=== PATIENT | male | born 1970 | race Caucasian/White ===

== ENCOUNTER 2018-12-11 06:05 | Outpatient (CLI) | payer OTHER ==
[~2018-12-11] VITALS: Ht 177.8 cm; Wt 127.0 kg
[2018-12-11] MEDS ORDERED: FOSI40TA5 PO (10:53)
[2018-12-11] MEDS ORDERED: DIPH25TA31 PO (10:53)
[2018-12-11] MEDS ORDERED: HYDR12.5 PO (10:53)
[2018-12-11] MEDS ORDERED: HYDR-3812 PO (10:53)
[2018-12-11] MEDS ORDERED: ALPR2TAB6 PO (10:53)
== END 2018-12-11 11:30 | disposition home or self-care (01) ==
LOC: PREOP 06:05
PROVIDERS: ATTEND Surgery
DX: Z01.818 Encounter for other preprocedural examination (principal)

== ENCOUNTER 2018-12-18 06:03 | Day surgery (SDC) | payer BC, OTHER ==
[2018-12-18] VITALS (12 sets, daily range): BP systolic 99–128; BP diastolic 75–87
[~2018-12-18] VITALS: Ht 177.8 cm; Wt 127.0 kg
[~2018-12-18 06:03] MED LIST: ALPR2TAB6 PO; DIPH25TA31 PO; FOSI40TA5 PO; HYDR-3812 PO; HYDR12.5 PO
[2018-12-18] MEDS ORDERED: LACTATED RINGERS 1,000 ML IV PRN (06:19)
[2018-12-18] MEDS ORDERED: ceFAZolin 2 GM/50 ML NS 50 ML IV ONE (06:30)
[2018-12-18] MEDS ORDERED: BUP/EPI 0.5% 1:200,000 (MARCAINE) 10ML VIAL IJ ONE (07:14)
[2018-12-18] MEDS ORDERED: ONDANSETRON 4 MG/2 ML (SDV) Z0FRAN ONE (07:14)
[2018-12-18] MEDS ORDERED: DEXAMETHASONE 10 MG/ML (DECADRON) 1 ML VIAL ONE (07:14)
[2018-12-18] MEDS ORDERED: LIDOCAINE PF 2% 5 ML (XYLOCAINE) VIAL ONE (07:14)
[2018-12-18] MEDS ORDERED: SEVOFLURANE (ULTANE) 15 ML INHAL SOLN ONE (07:14)
[2018-12-18] MEDS ORDERED: proPOfol 200 MG/20 ML (DIPRIVAN) VIAL IV ONE (07:14)
[2018-12-18] MEDS ORDERED: fentaNYL INJECTION 100 MCG/2 ML AMP ONE (07:15)
[2018-12-18] MEDS ORDERED: MIDAZOLAM 2 MG/2 ML (VERSED) VIAL ONE (07:15)
[2018-12-18] MEDS ORDERED: VALA500T4 PO (07:20)
--- NOTE | 2018-12-18 07:48 | Progress Note-Pre Operative ---
Pre-Operative Progress Note H&P Reviewed The H&P was reviewed, patient examined and no changes noted. Date Seen by Provider: Dec 18, 2018 Time Seen by Provider: 07:30 Date H&P Reviewed: Dec 18, 2018 Time H&P Reviewed: 07:30 Pre-Operative Diagnosis: right ankle mass DRAGAN LOPEZ DO Dec 18, 2018 07:47
[2018-12-18] MEDS ORDERED: ACHD5005 PO (08:29)
--- NOTE | 2018-12-18 08:33 | Discharge Inst-Simple/Standard ---
Discharge Inst-Standard Discharge Medications New, Converted or Re-Newed RX: RX on Chart Patient Instructions/Follow Up Plan of Care/Instructions/FU: Yuliya 1 week. Yuliya nurse visit tomorrow for wound care to right ankle. Activity as Tolerated: Yes Discharge Diet: Regular Diet Other Inst to Patient Follow up Appt: Make appointment for 1 week Nurse visit tomorrow for wound care/check at Dr. Dwyer's office. Instructions: May shower in 24 hours, no tub bath or soaking keeping the wound clean and dry. No Smoking Change dressing daily and as needed. Skin/Wound Care: Keep area clean and dry. Irrigate with saline and pack wet to dry with kerlex and then secure with cristy bandage. Symptoms to Report: Appetite Changes, Extremity Discoloration, Numbness/Tingling, Swelling Increased, Bleeding Excessive, Eyesight Changes, Pain Increased, Urine Color Change, Constipation(Persistent), Fever over 101 degree F, Pain/Pressure in chest, Urinating Difficulty, Cough Up/Vomit Blood, Heart Beat Irreg/Pounding, Pain/Pressure in jaw, Vaginal Bleeding Increase, Cramps in feet or legs, Lightheadedness, Pain/Pressure in shoulder, Diarrhea(Persistent), Memory Changes Suddenly, Questions/Concerns, Weight gain consecutive days, Dizziness/Fainting, Nausea/Vomiting, Shortness of Breath, Weight gain over 2 pounds If questions or concerns contact your physician Or seek help at emergency department. DRAGAN DWYER DO Dec 18, 2018 08:33
--- NOTE | 2018-12-18 08:35 | Progress Note-Post Operative ---
Post-Operative Progess Note Surgeon (s)/Rn Cardiac Cath (s) Surgeon DRAGAN LOPEZ DO Rn Cardiac Cath: na Pre-Operative Diagnosis right ankle mass Post-Operative Diagnosis same Procedure & Operative Findings Date of Procedure 12/18/18 Procedure Performed/Findings excision right ankle mass 4 x 4.5cm Anesthesia Type general Estimated Blood Loss Estimated blood loss (mL): min Specimens/Packing Specimens Removed right ankle mass DRAGAN LOPEZ DO Dec 18, 2018 08:35
[2018-12-18] MEDS ORDERED: morphine INJ 10 MG/ML 1ML (SYR OR VIAL) IVP ONE (08:45)
[2018-12-18] MEDS ORDERED: MEPERIDINE (DEMEROL) INJ 50 MG/ML IVP ONE (08:45)
[2018-12-18] MEDS ORDERED: ONDANSETRON 4 MG/2 ML (SDV) Z0FRAN IVP PRN (08:45)
--- NOTE | 2018-12-18 11:07 | OPERATIVE REPORT ---
DATE OF SERVICE: 12/18/2018 PREOPERATIVE DIAGNOSIS: Right ankle mass. POSTOPERATIVE DIAGNOSIS: Right ankle mass. PROCEDURE: Excision of right ankle mass 4 x 4.5 cm. SURGEON: Dragan Dwyer DO ANESTHESIA: General. ESTIMATED BLOOD LOSS: Minimal. COMPLICATIONS: None. INDICATIONS: The patient is a 48-year-old male with a right ankle mass. He has been discussed risks and benefits of excision and understands risks and benefits and wished to proceed. Consent was signed in the chart. The patient understands the likelihood not able to being closed this area. DESCRIPTION OF PROCEDURE: The patient was prepped and draped in sterile fashion. Surgical pause was performed. An incision was made circumferentially around the mass on the right lateral ankle measuring 4 x 4.5 cm. Cautery was used to dissect down through the subcutaneous tissues and around the mass until the mass was completely removed. Hemostasis was achieved. The wound was irrigated with copious amounts of irrigation and suction. Local anesthetic was infiltrated around the subcutaneous tissues. The wound was then packed wet to dry and sterile bandage was applied. The patient tolerated procedure well without any complications, taken to recovery room in stable condition. Specimen was labeled short suture superior and long suture lateral. RECOMMENDATIONS: The patient will follow up with wound care. He will follow up tomorrow for wound care and keep the area clean and dry, and daily dressing changes. He will possibly need a skin graft in the near future. Job ID: [id number] DocumentID: [id number] Dictated Date: 12/18/2018 08:37:45 Economic Development Coordinator Date: 12/18/2018 11:07:05 Dictated By: DRAGAN DWYER DO
--- NOTE | 2018-12-18 14:37 | Anesthesia-General Post-Op ---
General Patient Condition Mental Status/LOC: Same as Preop Cardiovascular: Satisfactory Nausea/Vomiting: Absent Respiratory: Satisfactory Pain: Controlled Complications: Absent Post Op Complications Complications None Follow Up Care/Instructions Patient Instructions None needed. Anesthesia/Patient Condition Patient Condition Patient is doing well, no complaints, stable vital signs, no apparent adverse anesthesia problems. No complications reported per nursing. JUAN ALFREDO CRNA Dec 18, 2018 14:37
== END 2018-12-18 11:04 | disposition home or self-care (01) ==
LOC: SDC 06:03
PROVIDERS: ATTEND Surgery
DX: D23.71 Other benign neoplasm of skin of right lower limb, including hip (principal); J30.1 Allergic rhinitis due to pollen; I10 Essential (primary) hypertension; E66.01 Morbid (severe) obesity due to excess calories; G89.4 Chronic pain syndrome; M47.816 Spondylosis without myelopathy or radiculopathy, lumbar region; F32.9 Major depressive disorder, single episode, unspecified; Z79.891 Long term (current) use of opiate analgesic; Z79.899 Other long term (current) drug therapy; Z90.49 Acquired absence of other specified parts of digestive tract; Z68.41 Body mass index [BMI] 40.0-44.9, adult; Z95.1 Presence of aortocoronary bypass graft; Z83.3 Family history of diabetes mellitus; Z80.9 Family history of malignant neoplasm, unspecified; Z82.49 Family history of ischemic heart disease and other diseases of the circulatory system
CPT/HCPCS: 87081; 88305; 88341; 88342

== ENCOUNTER 2019-01-01 05:35 | Outpatient (CLI) | payer BC ==
[~2019-01-01] VITALS: Ht 177.8 cm; Wt 127.0 kg
[~2019-01-01 05:35] MED LIST changes: +ACHD5005 PO; +VALA500T4 PO
[2019-01-03] MEDS ORDERED: ACHD5005 PO (10:28)
== END 2019-01-01 10:54 | disposition home or self-care (01) ==
LOC: PREOP 05:35
PROVIDERS: ATTEND Surgery
DX: Z01.818 Encounter for other preprocedural examination (principal)

== ENCOUNTER 2019-01-03 06:15 | Day surgery (SDC) | payer BC ==
[2019-01-03] VITALS (11 sets, daily range): BP systolic 111–137; BP diastolic 73–96
[~2019-01-03] VITALS: Ht 177.8 cm; Wt 127.0 kg
[~2019-01-03 06:15] MED LIST changes: +LACTATED RINGERS 1,000 ML IV PRN; +ceFAZolin 2 GM/50 ML NS 50 ML IV ONE
[2019-01-03] MEDS ORDERED: CATHETER FLUSH 10 ML SYR IV PRN (06:30)
[2019-01-03] MEDS ORDERED: fentaNYL INJECTION 100 MCG/2 ML AMP ONE (06:59)
[2019-01-03] MEDS ORDERED: MIDAZOLAM 2 MG/2 ML (VERSED) VIAL ONE (06:59)
[2019-01-03] MEDS ORDERED: LIDOCAINE 1% INJ 20 ML 20 ML VIAL ONE (07:11)
[2019-01-03] MEDS ORDERED: BUP/EPI 0.25% 1:200,000 (MARCAINE) 10 ML VIAL IJ ONE (07:11)
[2019-01-03] MEDS ORDERED: morphine INJ 10 MG/ML 1ML (SYR OR VIAL) IVP ONE (07:45)
[2019-01-03] MEDS ORDERED: MEPERIDINE (DEMEROL) INJ 50 MG/ML IVP ONE (07:45)
[2019-01-03] MEDS ORDERED: ONDANSETRON 4 MG/2 ML (SDV) Z0FRAN IVP PRN (07:45)
[2019-01-03] MEDS ORDERED: fentaNYL INJECTION 100 MCG/2 ML AMP IVP ONE (07:45)
--- NOTE | 2019-01-03 07:57 | Progress Note-Pre Operative ---
Pre-Operative Progress Note H&P Reviewed The H&P was reviewed, patient examined and no changes noted. Date Seen by Provider: Jan 03, 2019 Time Seen by Provider: 07:36 Date H&P Reviewed: Jan 03, 2019 Time H&P Reviewed: 07:36 Pre-Operative Diagnosis: right dermatofibroma lower ext DRAGAN LOPEZ DO Jan 03, 2019 07:57
[2019-01-03] MEDS ORDERED: proPOfol 200 MG/20 ML (DIPRIVAN) VIAL IV ONE (08:11)
[2019-01-03] MEDS ORDERED: SEVOFLURANE (ULTANE) 15 ML INHAL SOLN ONE ×3 (08:11→08:29)
[2019-01-03] MEDS ORDERED: LIDOCAINE PF 2% 5 ML (XYLOCAINE) VIAL ONE (08:11)
[2019-01-03] MEDS ORDERED: ONDANSETRON 4 MG/2 ML (SDV) Z0FRAN ONE (08:11)
[2019-01-03] MEDS ORDERED: ACHD5005 PO (10:28)
--- NOTE | 2019-01-03 10:30 | Discharge Inst-Simple/Standard ---
Discharge Inst-Standard Discharge Medications New, Converted or Re-Newed RX: RX on Chart Patient Instructions/Follow Up Plan of Care/Instructions/FU: 1 week Yuliya Activity as Tolerated: Yes Discharge Diet: Regular Diet Other Inst to Patient Follow up Appt: Make appointment for 1 week. Instructions: Wet to dry dressing as been doing daily and as needed. May shower in 24 hours, no tub bath or soaking. Use incentive spirometer at home as directed. No Smoking Skin/Wound Care: Wet to dry dressing daily and as needed. Symptoms to Report: Appetite Changes, Extremity Discoloration, Numbness/Tingling, Swelling Increased, Bleeding Excessive, Eyesight Changes, Pain Increased, Urine Color Change, Constipation(Persistent), Fever over 101 degree F, Pain/Pressure in chest, Urinating Difficulty, Cough Up/Vomit Blood, Heart Beat Irreg/Pounding, Pain/Pressure in jaw, Vaginal Bleeding Increase, Cramps in feet or legs, Lightheadedness, Pain/Pressure in shoulder, Diarrhea(Persistent), Memory Changes Suddenly, Questions/Concerns, Weight gain consecutive days, Dizziness/Fainting, Nausea/Vomiting, Shortness of Breath, Weight gain over 2 pounds If questions or concerns contact your physician Or seek help at emergency department. DRAGAN LOPEZ DO Jan 03, 2019 10:29
--- NOTE | 2019-01-03 10:32 | Progress Note-Post Operative ---
Post-Operative Progess Note Surgeon (s)/X Ray Operator (s) Surgeon DRAGAN LOPEZ DO X Ray Operator: na Pre-Operative Diagnosis right dermatofibroma lower ext Post-Operative Diagnosis same Procedure & Operative Findings Date of Procedure 01/03/19 Procedure Performed/Findings re-excision right dermatofibroma lower ext Anesthesia Type gen Estimated Blood Loss Estimated blood loss (mL): min Specimens/Packing Specimens Removed right lower extremity mass DRAGAN LOPEZ DO Jan 03, 2019 10:32
--- NOTE | 2019-01-03 12:42 | Anesthesia-General Post-Op ---
General Patient Condition Mental Status/LOC: Same as Preop Cardiovascular: Satisfactory Nausea/Vomiting: Absent Respiratory: Satisfactory Pain: Controlled Complications: Absent Post Op Complications Complications None Follow Up Care/Instructions Patient Instructions None needed. Anesthesia/Patient Condition Patient Condition Patient was seen this morning after the procedure and he was doing well, no complaints, stable vital signs, no apparent adverse anesthesia problems. TADEO SUAREZ DO Jan 03, 2019 12:42
--- NOTE | 2019-01-03 16:06 | OPERATIVE REPORT ---
DATE OF SERVICE: 01/03/2019 PREOPERATIVE DIAGNOSIS: Right lower extremity dermatofibroma. POSTOPERATIVE DIAGNOSIS: Right lower extremity dermatofibroma. PROCEDURE: Excision of dermatofibroma right lower extremity, 5.5 x 4.25 cm right lower extremity. SURGEON: Dragan Dwyer DO ANESTHESIA: General. ESTIMATED BLOOD LOSS: Minimal. COMPLICATIONS: None. INDICATION: The patient is a 48-year-old male with dermatofibroma that was previously excised with margins positive, which has been continued to grow to the area and trying to get this eradicated. He understands risks and benefits of procedure and wished to proceed with procedure. Consent was signed in the chart. DESCRIPTION OF PROCEDURE: The patient was taken to the operating suite. He was prepped and draped in sterile fashion. Timeout was performed. Incision was made, removing, more of an elliptical incision circumferentially the lower half where the positive margin was and then the skin and subcutaneous tissue was then removed more towards the superior aspect of the wound, removing the deeper tissue for the deep margin. This was then removed in entirety and sent as specimen. There was a small portion on the lateral aspect that still seems firm, so further excision was made. Hemostasis was achieved. The wound was irrigated and the wound was then packed and sterile bandage was applied. The patient tolerated the procedure well without any complications. He was taken to recovery room in stable condition. Job ID: [id number] DocumentID: [id number] Dictated Date: 01/03/2019 13:49:09 Video Conference Specialist Date: 01/03/2019 16:05:05 Dictated By: DRAGAN DWYER DO
== END 2019-01-03 11:20 | disposition home or self-care (01) ==
LOC: SDC 06:15
PROVIDERS: ATTEND Surgery
DX: D23.71 Other benign neoplasm of skin of right lower limb, including hip (principal); L97.919 Non-pressure chronic ulcer of unspecified part of right lower leg with unspecified severity; I10 Essential (primary) hypertension; K21.9 Gastro-esophageal reflux disease without esophagitis; E66.9 Obesity, unspecified; G89.4 Chronic pain syndrome; M47.816 Spondylosis without myelopathy or radiculopathy, lumbar region; M25.562 Pain in left knee; M25.561 Pain in right knee; J30.1 Allergic rhinitis due to pollen; F41.9 Anxiety disorder, unspecified; Z68.41 Body mass index [BMI] 40.0-44.9, adult; Z79.899 Other long term (current) drug therapy; Z79.891 Long term (current) use of opiate analgesic; Z83.3 Family history of diabetes mellitus; Z80.0 Family history of malignant neoplasm of digestive organs; Z82.49 Family history of ischemic heart disease and other diseases of the circulatory system
CPT/HCPCS: 87081

== ENCOUNTER → 2021-04-19 | Outpatient (CLI) | payer BC ==
[~2021-04-19] MED LIST changes: -FOSI40TA5 PO; +FOSI40TA65 PO; -HYDR-3812 PO; -LACTATED RINGERS 1,000 ML IV PRN; -ceFAZolin 2 GM/50 ML NS 50 ML IV ONE
--- NOTE | 2021-04-19 13:10 | Diagnostic Imaging Report ---
EXAMINATION: Lumbosacral spine 2 or 3 views HISTORY: Cyst removed 10 years ago at T11 through L2. Continued pain EXAMINATION: Lumbar spine 04/19/2021 COMPARISON: 06/02/2013 FINDINGS: 3 views of the lumbar spine. There is normal height and alignment of the vertebral bodies. No fractures are subluxations appreciated. Facet hypertrophy noted at L4-L5 and L5-S1. Clips noted in the right upper quadrant. IMPRESSION: 1. Degenerative findings with no acute osseous abnormality. Dictated by: Dictated on workstation # [id number]
--- NOTE | 2021-04-19 14:02 | Diagnostic Imaging Report ---
INDICATION: Back pain. 3 views. The thoracic spine shows good alignment. Body height is well maintained throughout. There are sclerotic hypertrophic endplate changes scattered anteriorly throughout the thoracic spine. 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 Pedicles are intact. IMPRESSION: Degenerative disc disease throughout with hypertrophic bony endplate changes noted. Dictated by: Dictated on workstation # [id number]
== END ==
LOC: RAD 10:38
PROVIDERS: ATTEND Nurse Practitioner Family
DX: M51.34 Other intervertebral disc degeneration, thoracic region (principal); M47.815 Spondylosis without myelopathy or radiculopathy, thoracolumbar region
CPT/HCPCS: 72072; 72100